=== PATIENT | male | born 1945 | race Two or more races ===

== ENCOUNTER 2021-06-14 19:46 | Inpatient (IN) | payer OTHER, MEDICAID ==
[~2021-06-14] VITALS: Ht 165.1 cm; Wt 96.6 kg
[~2021-06-14 19:46] MED LIST: ALBU90AE INH; AMLO10TA4 MT; APIX2.5T MT; ASPI-1497 MT; ATOR20TA MT; ATOR20TA65 MT; CHOL2000; COR3 MT; DEXA4TAB PO; FAMO-135 PO; FERR-71 MT; GLIP-191 MT; LEVO500T89 MT; LEVO50CA4 PO; MELO-106 MT; MOME13HF2 INH; SITA100T11 MT
[2021-06-14] MEDS ORDERED: ACETAMINOPHEN 325MG TABLET PO STA (20:26)
[2021-06-14] MEDS ORDERED: DEXAMETHASONE 4MG/ML 1ML VIAL IV ONE (20:30)
[2021-06-14] MEDS ORDERED: SODIUM CHLORIDE 0.9% 250 ML IV ONE (20:30)
[2021-06-14] MEDS ORDERED: PIPERACILLIN/TAZ 3.375G PREMIX 50 ML IV ONE (21:00)
[2021-06-14 21:51] LABS: BASOPHILS % 0.1 % (0.0-2.0); HEMATOCRIT. 42.8 % (42.0-52.0); HEMOGLOBIN. 14.7 g/dL (14.0-18.0); MEAN CORPUSCULAR HEMOGLOBIN 30.5 pg (28.0-32.0); MEAN CORPUSCULAR VOLUME 88.8 fL (80.0-94.0); MEAN PLATELET VOLUME 9.4 fl (7.4-10.4); MONOCYTES % 5.7 % (2.0-8.0); NEUTROPHILS % 83.2 % (40.0-76.0); PLATELET 160 x1000/uL (130-400); RED BLOOD CELL COUNT 4.82 mill/uL (4.7-6.1); RED CELL DISTRIBUTION WIDTH 13.5 % (11.6-14.6)
[2021-06-14 21:54] LABS: CHLORIDE 97 mEq/L (98-107)
[2021-06-14 21:57] LABS: PROTHROMBIN TIME 10.9 sec (9.6-11.0)
[2021-06-14 22:59] LABS: CLARITY URINE CLEAR (CLEAR); COLOR URINE YELLOW (YELLOW); KETONES URINE TRACE (NEGATIVE); LEUKOCYTE ESTERASE URINE NEGATIVE (NEGATIVE); NITRITE URINE NEGATIVE (NEGATIVE); OCCULT BLOOD URINE TRACE (NEGATIVE); PH URINE 5.5 (4.5-8.0); PROTEIN URINE 1+ (NEGATIVE); SPECIFIC GRAVITY URINE 1.023 (1.005-1.030); UROBILINOGEN URINE 0.2 E.U./dL (0.2-1.0)
[2021-06-15 04:00] VITALS: BP 128/61
[2021-06-15] MEDS ORDERED: *PATIENT'S OWN MEDICATION STORAGE XX SCH (04:30)
[2021-06-15 04:42] VITALS: BP 114/61
[2021-06-15] MEDS ORDERED: DEXTROSE 50% WATER 50ML SYRINGE IV PRN (07:00)
[2021-06-15] MEDS ORDERED: MORPHINE SULFATE 2 MG/ML CPJ (NOT FOR IM USE) IV PRN (07:00)
[2021-06-15] MEDS ORDERED: NALOXONE HCL 0.4MG/ML VIAL IV PRN (07:30)
[2021-06-15] MEDS: BLOOD SUGAR DIAGNOSTIC STRIP TEST SCH ×4 (07:59→20:33)
[2021-06-15 08:00] VITALS: BP 92/50
[2021-06-15] MEDS: ENOXAPARIN 40MG/0.4ML SYR SUBCUT SCH (08:32)
[2021-06-15] MEDS: AMLODIPINE 10MG TABLET PO SCH (08:32)
[2021-06-15] MEDS: ASPIRIN 81MG TABLET PO SCH (08:32)
[2021-06-15] MEDS: LEVOTHYROXINE SODIUM 50MCG TABLET PO SCH (08:33)
[2021-06-15] MEDS: SODIUM CHLORIDE 0.9% 1,000 ML IV SCH ×2 (08:33→20:20)
[2021-06-15] MEDS: CARVEDILOL 3.125 MG TABLET PO SCH ×2 (08:33→20:38)
[2021-06-15] MEDS: CEFTRIAXONE 1,000 MG in DEXTROSE 5% WATER 50 ML IV SCH (08:34)
[2021-06-15] MEDS: INSULIN LISPRO 100 UNITS/ML SUBCUT SCH ×4 (08:42→20:48)
[2021-06-15] MEDS: CHOLECALCIFEROL (D3) 1000 UNIT TABLET PO SCH (09:00)
[2021-06-15 10:29] LABS: HEMATOCRIT. 37.4 % (42.0-52.0); HEMOGLOBIN. 12.8 g/dL (14.0-18.0); MEAN CORPUSCULAR HEMOGLOBIN 30.4 pg (28.0-32.0); MEAN PLATELET VOLUME 9.4 fl (7.4-10.4); PLATELET 150 x1000/uL (130-400); RED CELL DISTRIBUTION WIDTH 13.1 % (11.6-14.6)
[2021-06-15 10:34] LABS: CHLORIDE 102 mEq/L (98-107)
[2021-06-15 12:00] VITALS: BP 98/39
[2021-06-15 12:22] LABS: PLATELET ESTIMATE NORMAL
[2021-06-15 15:04] LABS: BG BASE EXCESS -2.6 mmol/L (-2.0-2.0); BG CARBOXYHEMOGLOBIN 0.3 % (0.5-1.5); BG DEOXYHEMOGLOBIN 7.9 % (0.0-5.0); BG HCO3 ACT 20.9 mmol/L (22.0-26.0); BG OXYGEN SATURATION 92.1 % (92.0-98.5); BG OXYHEMOGLOBIN 91.8 % (94.0-97.0); BG PCO2 32.8 mmHg (35.0-45.0); BG PH 7.423 (7.350-7.450); BG SAMPLE SITE RIGHT RADIAL; BG TOTAL HEMOGLOBIN 13.6 g/dL (12.0-18.0); BG VENT MODE NASAL CANNULA
[2021-06-15 16:00] VITALS: BP 135/53
[2021-06-15] MEDS: AZITHROMYCIN 500 MG in DEXT 5% WATER 250 ML IV SCH (17:00)
[2021-06-15] MEDS: DEXAMETHASONE 10 MG/ML VIAL IV SCH (17:01)
[2021-06-15 20:00] VITALS: BP 126/54
[2021-06-15] MEDS: ACETAMINOPHEN 325MG TABLET PO PRN (20:47)
[2021-06-15] MEDS: ATORVASTATIN CALCIUM 20MG TABLET PO SCH (20:47)
[2021-06-15] MEDS: FAMOTIDINE 20MG/2ML VIAL IV SCH (20:48)
[2021-06-16] VITALS (7 sets, daily range): BP systolic 85–138; BP diastolic 52–66
[2021-06-16] MEDS: INSULIN LISPRO 100 UNITS/ML SUBCUT SCH ×4 (06:29→21:44)
[2021-06-16] MEDS: BLOOD SUGAR DIAGNOSTIC STRIP TEST SCH ×4 (06:29→21:24)
[2021-06-16 06:58] LABS: CHLORIDE 103 mEq/L (98-107)
[2021-06-16 07:07] LABS: HEMATOCRIT. 39.3 % (42.0-52.0); HEMOGLOBIN. 13.4 g/dL (14.0-18.0); MEAN CORPUSCULAR HEMOGLOBIN 30.1 pg (28.0-32.0); MEAN CORPUSCULAR VOLUME 88.5 fL (80.0-94.0); MEAN PLATELET VOLUME 9.7 fl (7.4-10.4); PLATELET 163 x1000/uL (130-400); RED BLOOD CELL COUNT 4.44 mill/uL (4.7-6.1); RED CELL DISTRIBUTION WIDTH 13.3 % (11.6-14.6)
[2021-06-16] MEDS: FAMOTIDINE 20MG/2ML VIAL IV SCH (09:00)
[2021-06-16 09:34] LABS: BG BASE EXCESS -0.7 mmol/L (-2.0-2.0); BG CARBOXYHEMOGLOBIN 0.5 % (0.5-1.5); BG DEOXYHEMOGLOBIN 5.1 % (0.0-5.0); BG FRACTION INSPIRED OXYGEN 99.8; BG METHEMOGLOBIN 0.1 % (0.0-1.5); BG OXYGEN SATURATION 94.9 % (92.0-98.5); BG OXYHEMOGLOBIN 94.3 % (94.0-97.0); BG PCO2 34.9 mmHg (35.0-45.0); BG PH 7.436 (7.350-7.450); BG PO2 69.3 mmHg (75.0-100.0); BG SAMPLE SITE RIGHT RADIAL; BG TOTAL HEMOGLOBIN 13.7 g/dL (12.0-18.0); BG VENT MODE MASK - NRB
[2021-06-16] MEDS: CEFTRIAXONE 1,000 MG in DEXTROSE 5% WATER 50 ML IV SCH (09:38)
[2021-06-16] MEDS: ENOXAPARIN 40MG/0.4ML SYR SUBCUT SCH (09:39)
[2021-06-16] MEDS: DEXAMETHASONE 10 MG/ML VIAL IV SCH (09:40)
[2021-06-16] MEDS: CHOLECALCIFEROL (D3) 1000 UNIT TABLET PO SCH (09:40)
[2021-06-16] MEDS: ASPIRIN 81MG TABLET PO SCH (09:41)
[2021-06-16] MEDS: LEVOTHYROXINE SODIUM 50MCG TABLET PO SCH (09:45)
[2021-06-16] MEDS: CARVEDILOL 3.125 MG TABLET PO SCH ×2 (09:45→21:00)
[2021-06-16] MEDS: AMLODIPINE 10MG TABLET PO SCH (09:45)
[2021-06-16] MEDS: SODIUM CHLORIDE 0.9% 1,000 ML IV SCH ×2 (09:46→21:44)
[2021-06-16 15:13] LABS: PLATELET ESTIMATE NORMAL
[2021-06-16] MEDS: AZITHROMYCIN 500 MG in DEXT 5% WATER 250 ML IV SCH (16:24)
[2021-06-16] MEDS: ATORVASTATIN CALCIUM 20MG TABLET PO SCH (21:24)
[2021-06-16] MEDS: FAMOTIDINE 20MG TABLET PO SCH (21:24)
[2021-06-17] VITALS: BP 100/49
[2021-06-17 04:00] VITALS: BP 127/59
[2021-06-17] MEDS: BLOOD SUGAR DIAGNOSTIC STRIP TEST SCH ×4 (06:30→21:33)
[2021-06-17] MEDS: LEVOTHYROXINE SODIUM 50MCG TABLET PO SCH (06:30)
[2021-06-17 06:38] LABS: CHLORIDE 103 mEq/L (98-107)
[2021-06-17 06:53] LABS: HEMATOCRIT. 38.6 % (42.0-52.0); HEMOGLOBIN. 13.2 g/dL (14.0-18.0); MEAN CORPUSCULAR HEMOGLOBIN 30.1 pg (28.0-32.0); MEAN CORPUSCULAR VOLUME 88.3 fL (80.0-94.0); MEAN PLATELET VOLUME 9.6 fl (7.4-10.4); PLATELET 192 x1000/uL (130-400); RED BLOOD CELL COUNT 4.37 mill/uL (4.7-6.1); RED CELL DISTRIBUTION WIDTH 13.4 % (11.6-14.6)
[2021-06-17 08:00] VITALS: BP 121/48
[2021-06-17] MEDS: CEFTRIAXONE 1,000 MG in DEXTROSE 5% WATER 50 ML IV SCH (08:11)
[2021-06-17] MEDS: ASPIRIN 81MG TABLET PO SCH (08:12)
[2021-06-17] MEDS: CARVEDILOL 3.125 MG TABLET PO SCH ×2 (08:12→21:32)
[2021-06-17] MEDS: ENOXAPARIN 40MG/0.4ML SYR SUBCUT SCH (08:12)
[2021-06-17] MEDS: CHOLECALCIFEROL (D3) 1000 UNIT TABLET PO SCH (08:12)
[2021-06-17] MEDS: AMLODIPINE 10MG TABLET PO SCH (08:12)
[2021-06-17] MEDS: DEXAMETHASONE 10 MG/ML VIAL IV SCH (08:12)
[2021-06-17] MEDS: FAMOTIDINE 20MG TABLET PO SCH ×2 (08:12→21:32)
[2021-06-17] MEDS: INSULIN LISPRO 100 UNITS/ML SUBCUT SCH ×4 (08:14→21:32)
[2021-06-17 10:42] LABS: BG BASE EXCESS -1.3 mmol/L (-2.0-2.0); BG CARBOXYHEMOGLOBIN 0.3 % (0.5-1.5); BG DEOXYHEMOGLOBIN 8.4 % (0.0-5.0); BG FRACTION INSPIRED OXYGEN 100; BG HCO3 ACT 21.7 mmol/L (22.0-26.0); BG METHEMOGLOBIN 0.1 % (0.0-1.5); BG OXYGEN SATURATION 91.6 % (92.0-98.5); BG OXYHEMOGLOBIN 91.2 % (94.0-97.0); BG PCO2 31.6 mmHg (35.0-45.0); BG PH 7.455 (7.350-7.450); BG PO2 56.4 mmHg (75.0-100.0); BG SAMPLE SITE RIGHT RADIAL; BG TOTAL HEMOGLOBIN 13.5 g/dL (12.0-18.0); BG VENT MODE HIGH FLOW
[2021-06-17] MEDS: SODIUM CHLORIDE 0.9% 1,000 ML IV SCH (11:24)
[2021-06-17 12:00] VITALS: BP 100/46
[2021-06-17 16:00] VITALS: BP 115/46
[2021-06-17] MEDS: AZITHROMYCIN 500 MG in DEXT 5% WATER 250 ML IV SCH (17:38)
[2021-06-17] MEDS ORDERED: INSULIN GLARGINE UD 100 UNITS/ML SYR SUBCUT NR (18:30)
[2021-06-17 20:00] VITALS: BP 123/46
[2021-06-17 21:22] LABS: PLATELET ESTIMATE NORMAL
[2021-06-17] MEDS: ATORVASTATIN CALCIUM 20MG TABLET PO SCH (21:32)
[2021-06-18] VITALS (28 sets, daily range): BP systolic 115–156; BP diastolic 50–84
[2021-06-18] MEDS: ACETAMINOPHEN 325MG TABLET PO PRN (00:50)
[2021-06-18] MEDS: SODIUM CHLORIDE 0.9% 1,000 ML IV SCH ×2 (01:40→15:11)
[2021-06-18 06:05] LABS: BG BASE EXCESS 1.5 mmol/L (-2.0-2.0); BG CARBOXYHEMOGLOBIN 0.3 % (0.5-1.5); BG DEOXYHEMOGLOBIN 11.4 % (0.0-5.0); BG FRACTION INSPIRED OXYGEN 100; BG METHEMOGLOBIN 0.2 % (0.0-1.5); BG OXYGEN SATURATION 88.5 % (92.0-98.5); BG OXYHEMOGLOBIN 88.1 % (94.0-97.0); BG PCO2 35.8 mmHg (35.0-45.0); BG PH 7.462 (7.350-7.450); BG PO2 51.4 mmHg (75.0-100.0); BG SAMPLE SITE RIGHT RADIAL; BG TOTAL HEMOGLOBIN 13.6 g/dL (12.0-18.0); BG VENT MODE MASK - NRB
[2021-06-18 06:52] LABS: CHLORIDE 99 mEq/L (98-107)
[2021-06-18 06:57] LABS: HEMATOCRIT. 37.9 % (42.0-52.0); HEMOGLOBIN. 12.9 g/dL (14.0-18.0); MEAN PLATELET VOLUME 9.1 fl (7.4-10.4); PLATELET 201 x1000/uL (130-400); RED BLOOD CELL COUNT 4.31 mill/uL (4.7-6.1); RED CELL DISTRIBUTION WIDTH 13.3 % (11.6-14.6)
[2021-06-18] MEDS: LEVOTHYROXINE SODIUM 50MCG TABLET PO SCH ×2 (07:40→10:02)
[2021-06-18] MEDS: BLOOD SUGAR DIAGNOSTIC STRIP TEST SCH ×4 (07:40→20:28)
[2021-06-18] MEDS: INSULIN LISPRO 100 UNITS/ML SUBCUT SCH ×4 (08:10→21:00)
[2021-06-18] MEDS: ASPIRIN 81MG TABLET PO SCH ×2 (09:00→10:02)
[2021-06-18] MEDS: AMLODIPINE 10MG TABLET PO SCH ×2 (09:00→10:03)
[2021-06-18] MEDS: CARVEDILOL 3.125 MG TABLET PO SCH ×3 (09:00→21:00)
[2021-06-18] MEDS: FAMOTIDINE 20MG TABLET PO SCH ×2 (09:00→21:00)
[2021-06-18] MEDS: CHOLECALCIFEROL (D3) 1000 UNIT TABLET PO SCH ×2 (09:00→10:03)
[2021-06-18] MEDS: INSULIN GLARGINE UD 100 UNITS/ML SYR SUBCUT SCH ×3 (10:00→22:00)
[2021-06-18] MEDS: ENOXAPARIN 40MG/0.4ML SYR SUBCUT SCH (10:01)
[2021-06-18] MEDS: DEXAMETHASONE 10 MG/ML VIAL IV SCH (10:01)
[2021-06-18] MEDS: CEFTRIAXONE 1,000 MG in DEXTROSE 5% WATER 50 ML IV SCH (10:02)
[2021-06-18] MEDS ORDERED: LORAZEPAM 2MG/ML CPJ IV NR ×2 (15:45→17:30)
[2021-06-18 16:11] LABS: BG BASE EXCESS 3.8 mmol/L (-2.0-2.0); BG CARBOXYHEMOGLOBIN 0.4 % (0.5-1.5); BG DEOXYHEMOGLOBIN 1.2 % (0.0-5.0); BG HCO3 ACT 27.1 mmol/L (22.0-26.0); BG METHEMOGLOBIN 0.4 % (0.0-1.5); BG OXYGEN SATURATION 98.8 % (92.0-98.5); BG PCO2 36.5 mmHg (35.0-45.0); BG PH 7.489 (7.350-7.450); BG SAMPLE SITE RIGHT RADIAL; BG TOTAL HEMOGLOBIN 13.7 g/dL (12.0-18.0); BG TOTAL RESPIRATORY RATE 44 b/min; BG VENT MODE MASK - BIPAP
[2021-06-18] MEDS: AZITHROMYCIN 500 MG in DEXT 5% WATER 250 ML IV SCH (19:36)
[2021-06-18] MEDS: ATORVASTATIN CALCIUM 20MG TABLET PO SCH (21:00)
[2021-06-19] VITALS (97 sets, daily range): BP systolic 81–162; BP diastolic 49–85
[2021-06-19 01:36] LABS: BG BASE EXCESS -3.2 mmol/L (-2.0-2.0); BG CARBOXYHEMOGLOBIN 0.3 % (0.5-1.5); BG DEOXYHEMOGLOBIN 8.1 % (0.0-5.0); BG HCO3 ACT 26.6 mmol/L (22.0-26.0); BG METHEMOGLOBIN 0.3 % (0.0-1.5); BG OXYGEN SATURATION 91.9 % (92.0-98.5); BG OXYHEMOGLOBIN 91.3 % (94.0-97.0); BG PCO2 70.5 mmHg (35.0-45.0); BG PH 7.195 (7.350-7.450); BG TOTAL HEMOGLOBIN 14.5 g/dL (12.0-18.0)
[2021-06-19] MEDS: PROPOFOL 10MG/ML 100ML 100 ML IV PRN ×6 (02:15→22:04)
[2021-06-19] MEDS: BLOOD SUGAR DIAGNOSTIC STRIP TEST SCH ×4 (05:41→21:46)
[2021-06-19] MEDS: SODIUM CHLORIDE 0.9% 1,000 ML IV SCH (05:41)
[2021-06-19] MEDS: LEVOTHYROXINE SODIUM 50MCG TABLET PO SCH (05:41)
[2021-06-19 05:47] LABS: CHLORIDE 99 mEq/L (98-107)
[2021-06-19 05:49] LABS: HEMATOCRIT. 38.2 % (42.0-52.0); HEMOGLOBIN. 12.7 g/dL (14.0-18.0); MEAN CORPUSCULAR HEMOGLOBIN 29.9 pg (28.0-32.0); MEAN CORPUSCULAR VOLUME 90.1 fL (80.0-94.0); MEAN PLATELET VOLUME 9.4 fl (7.4-10.4); PLATELET 109 x1000/uL (130-400); RED BLOOD CELL COUNT 4.24 mill/uL (4.7-6.1); RED CELL DISTRIBUTION WIDTH 13.4 % (11.6-14.6)
[2021-06-19] MEDS: INSULIN LISPRO 100 UNITS/ML SUBCUT SCH ×4 (07:00→22:00)
[2021-06-19] MEDS: NOREPINEPHRINE 8 MG in DEXT 5% WATER 242 ML IV PRN ×2 (07:32→19:49)
[2021-06-19] MEDS: CHOLECALCIFEROL (D3) 1000 UNIT TABLET PO SCH (08:59)
[2021-06-19] MEDS: ENOXAPARIN 40MG/0.4ML SYR SUBCUT SCH (08:59)
[2021-06-19] MEDS: DEXAMETHASONE 10 MG/ML VIAL IV SCH (08:59)
[2021-06-19] MEDS: CARVEDILOL 3.125 MG TABLET PO SCH ×2 (09:00→21:26)
[2021-06-19] MEDS: ASPIRIN 81MG TABLET PO SCH (09:00)
[2021-06-19] MEDS: FAMOTIDINE 20MG TABLET PO SCH ×2 (09:00→21:25)
[2021-06-19] MEDS: AMLODIPINE 10MG TABLET PO SCH (09:00)
[2021-06-19] MEDS: INSULIN GLARGINE UD 100 UNITS/ML SYR SUBCUT SCH ×2 (09:01→22:03)
[2021-06-19 09:35] LABS: BG BASE EXCESS -3.4 mmol/L (-2.0-2.0); BG CARBOXYHEMOGLOBIN 1.1 % (0.5-1.5); BG DEOXYHEMOGLOBIN 22.7 % (0.0-5.0); BG FRACTION INSPIRED OXYGEN 100; BG METHEMOGLOBIN 0.3 % (0.0-1.5); BG OXYHEMOGLOBIN 75.9 % (94.0-97.0); BG PCO2 41.2 mmHg (35.0-45.0); BG PH 7.346 (7.350-7.450); BG PO2 42.3 mmHg (75.0-100.0); BG SAMPLE SITE RIGHT RADIAL; BG TOTAL HEMOGLOBIN 15.2 g/dL (12.0-18.0); BG VENT MODE VENT - AC
[2021-06-19] MEDS: CEFTRIAXONE 1,000 MG in DEXTROSE 5% WATER 50 ML IV SCH (10:25)
[2021-06-19 12:29] LABS: BG BASE EXCESS -2.9 mmol/L (-2.0-2.0); BG CARBOXYHEMOGLOBIN 0.3 % (0.5-1.5); BG DEOXYHEMOGLOBIN 3.3 % (0.0-5.0); BG FRACTION INSPIRED OXYGEN 100; BG HCO3 ACT 22.9 mmol/L (22.0-26.0); BG METHEMOGLOBIN 0.2 % (0.0-1.5); BG OXYGEN SATURATION 96.7 % (92.0-98.5); BG OXYHEMOGLOBIN 96.2 % (94.0-97.0); BG PCO2 43.4 mmHg (35.0-45.0); BG SAMPLE SITE RIGHT RADIAL; BG VENT MODE VENT - AC
[2021-06-19] MEDS ORDERED: LIDOCAINE HCL 1% 20ML VIAL (Pyxis) INJ ONE (13:28)
[2021-06-19] MEDS: AZITHROMYCIN 500 MG in DEXT 5% WATER 250 ML IV SCH (16:09)
[2021-06-19 17:22] LABS: PLATELET ESTIMATE NORMAL
[2021-06-19 17:36] LABS: PLATELET ESTIMATE DECREASED
[2021-06-19] MEDS: ATORVASTATIN CALCIUM 20MG TABLET PO SCH (21:25)
[2021-06-20] VITALS (99 sets, daily range): BP systolic 62–163; BP diastolic 33–82
[2021-06-20] MEDS: PROPOFOL 10MG/ML 100ML 100 ML IV PRN ×3 (02:07→10:07)
[2021-06-20] MEDS: IPRATROPIUM/ALBUTEROL 0.5-3(2.5)MG/3ML NEB HHN SCH ×4 (02:10→20:15)
[2021-06-20] MEDS: BLOOD SUGAR DIAGNOSTIC STRIP TEST SCH ×4 (06:08→20:05)
[2021-06-20] MEDS: INSULIN LISPRO 100 UNITS/ML SUBCUT SCH ×4 (06:24→20:21)
[2021-06-20] MEDS: LEVOTHYROXINE SODIUM 50MCG TABLET PO SCH (06:24)
[2021-06-20 06:26] LABS: CHLORIDE 101 mEq/L (98-107)
[2021-06-20] MEDS: ENOXAPARIN 40MG/0.4ML SYR SUBCUT SCH (08:29)
[2021-06-20] MEDS: DEXAMETHASONE 4MG/ML 1ML VIAL IV SCH (08:29)
[2021-06-20] MEDS: CEFTRIAXONE 1,000 MG in DEXTROSE 5% WATER 50 ML IV SCH (08:29)
[2021-06-20] MEDS: ASPIRIN 81MG TABLET PO SCH (08:30)
[2021-06-20] MEDS: CHOLECALCIFEROL (D3) 1000 UNIT TABLET PO SCH (08:30)
[2021-06-20] MEDS: FAMOTIDINE 20MG TABLET PO SCH ×2 (08:30→20:22)
[2021-06-20] MEDS: CARVEDILOL 3.125 MG TABLET PO SCH ×2 (08:31→20:04)
[2021-06-20] MEDS: AMLODIPINE 10MG TABLET PO SCH (08:31)
[2021-06-20 09:02] LABS: BG BASE EXCESS -2.1 mmol/L (-2.0-2.0); BG CARBOXYHEMOGLOBIN 0.3 % (0.5-1.5); BG DEOXYHEMOGLOBIN 8.7 % (0.0-5.0); BG FRACTION INSPIRED OXYGEN 100; BG HCO3 ACT 22.9 mmol/L (22.0-26.0); BG METHEMOGLOBIN 0.3 % (0.0-1.5); BG OXYGEN SATURATION 91.2 % (92.0-98.5); BG OXYHEMOGLOBIN 90.7 % (94.0-97.0); BG PCO2 40.2 mmHg (35.0-45.0); BG PH 7.374 (7.350-7.450); BG PO2 60.2 mmHg (75.0-100.0); BG SAMPLE SITE RIGHT RADIAL; BG TOTAL HEMOGLOBIN 13.6 g/dL (12.0-18.0); BG VENT MODE VENT - AC
[2021-06-20] MEDS: NOREPINEPHRINE 8 MG in DEXT 5% WATER 242 ML IV PRN ×2 (10:06→14:55)
[2021-06-20] MEDS: INSULIN GLARGINE UD 100 UNITS/ML SYR SUBCUT SCH ×2 (10:58→21:01)
[2021-06-20] MEDS ORDERED: MIDAZOLAM 100MG/100ML PMX 100 ML IV PRN (11:45)
[2021-06-20] MEDS ORDERED: MIDAZOLAM HCL 100 MG in SODIUM CHLORIDE 0.9% 100 ML IV PRN (12:00)
[2021-06-20] MEDS: FENTANYL CITRATE/PF 2,500 MCG in SODIUM CHLORIDE 0.9% 200 ML IV PRN (13:09)
[2021-06-20] MEDS: ACETAMINOPHEN 325MG TABLET PO PRN (15:56)
[2021-06-20] MEDS: NOREPINEPHRINE 32 MG in DEXT 5% WATER 242 ML IV PRN (19:01)
[2021-06-20] MEDS: ATORVASTATIN CALCIUM 20MG TABLET PO SCH (20:22)
[2021-06-20 20:58] LABS: BG BASE EXCESS -3.6 mmol/L (-2.0-2.0); BG CARBOXYHEMOGLOBIN 0.5 % (0.5-1.5); BG DEOXYHEMOGLOBIN 5.8 % (0.0-5.0); BG FRACTION INSPIRED OXYGEN 100; BG HCO3 ACT 23.1 mmol/L (22.0-26.0); BG METHEMOGLOBIN 0.3 % (0.0-1.5); BG OXYGEN SATURATION 94.2 % (92.0-98.5); BG OXYHEMOGLOBIN 93.4 % (94.0-97.0); BG PCO2 48.9 mmHg (35.0-45.0); BG PH 7.293 (7.350-7.450); BG SAMPLE SITE RIGHT RADIAL; BG TOTAL HEMOGLOBIN 12.7 g/dL (12.0-18.0); BG VENT MODE PRVC
[2021-06-21] VITALS (96 sets, daily range): BP systolic 84–148; BP diastolic 36–66
[2021-06-21] MEDS: IPRATROPIUM/ALBUTEROL 0.5-3(2.5)MG/3ML NEB HHN SCH ×4 (01:51→20:24)
[2021-06-21] MEDS: BLOOD SUGAR DIAGNOSTIC STRIP TEST SCH ×4 (05:48→20:19)
[2021-06-21] MEDS: INSULIN LISPRO 100 UNITS/ML SUBCUT SCH ×4 (05:52→20:26)
[2021-06-21] MEDS: LEVOTHYROXINE SODIUM 50MCG TABLET PO SCH (05:52)
[2021-06-21] MEDS: AMLODIPINE 10MG TABLET PO SCH (09:00)
[2021-06-21] MEDS: CARVEDILOL 3.125 MG TABLET PO SCH ×2 (09:00→20:19)
[2021-06-21 09:39] LABS: HEMATOCRIT. 30.8 % (42.0-52.0); HEMOGLOBIN. 10.4 g/dL (14.0-18.0); MEAN CORPUSCULAR HEMOGLOBIN 30.5 pg (28.0-32.0); MEAN CORPUSCULAR VOLUME 90.7 fL (80.0-94.0); MEAN PLATELET VOLUME 9.9 fl (7.4-10.4); RED CELL DISTRIBUTION WIDTH 13.7 % (11.6-14.6)
[2021-06-21] MEDS: ASPIRIN 81MG TABLET PO SCH (09:54)
[2021-06-21] MEDS: DEXAMETHASONE 4MG/ML 1ML VIAL IV SCH (09:54)
[2021-06-21] MEDS: FAMOTIDINE 20MG TABLET PO SCH (09:55)
[2021-06-21] MEDS: INSULIN GLARGINE UD 100 UNITS/ML SYR SUBCUT SCH ×2 (09:55→21:14)
[2021-06-21] MEDS: CHOLECALCIFEROL (D3) 1000 UNIT TABLET PO SCH (09:55)
[2021-06-21 10:17] LABS: PLATELET 19 x1000/uL (130-400)
[2021-06-21] MEDS: METOCLOPRAMIDE HCL 10MG/2ML VIAL IV SCH ×3 (12:19→23:00)
[2021-06-21 12:46] LABS: NUCLEATED RED BLOOD CELLS 1 /100 WBC; PLATELET ESTIMATE MARKEDLY DECREASED
[2021-06-21] MEDS ORDERED: VANCOMYCIN 2,000 MG in DEXT 5% WATER 500 ML IV SCH (14:00)
[2021-06-21 14:23] LABS: BG BASE EXCESS 1.1 mmol/L (-2.0-2.0); BG CARBOXYHEMOGLOBIN 0.5 % (0.5-1.5); BG DEOXYHEMOGLOBIN 0.8 % (0.0-5.0); BG HCO3 ACT 26.3 mmol/L (22.0-26.0); BG METHEMOGLOBIN 0.3 % (0.0-1.5); BG OXYGEN SATURATION 99.2 % (92.0-98.5); BG OXYHEMOGLOBIN 98.4 % (94.0-97.0); BG PCO2 43.8 mmHg (35.0-45.0); BG PH 7.396 (7.350-7.450); BG PO2 222.9 mmHg (75.0-100.0); BG SAMPLE SITE RIGHT BRACHIAL; BG TOTAL HEMOGLOBIN 12.9 g/dL (12.0-18.0); BG VENT MODE VENT- PRVC
[2021-06-21] MEDS: MEROPENEM 1,000 MG in SODIUM CHLORIDE 0.9% 100 ML IV SCH ×2 (14:23→23:00)
[2021-06-21] MEDS: ATORVASTATIN CALCIUM 20MG TABLET PO SCH (20:25)
[2021-06-21] MEDS: NOREPINEPHRINE 32 MG in DEXT 5% WATER 242 ML IV PRN (20:25)
[2021-06-22] VITALS (92 sets, daily range): BP systolic 87–146; BP diastolic 39–65
[2021-06-22] MEDS: IPRATROPIUM/ALBUTEROL 0.5-3(2.5)MG/3ML NEB HHN SCH ×4 (02:11→20:34)
[2021-06-22] MEDS: BLOOD SUGAR DIAGNOSTIC STRIP TEST SCH ×4 (05:04→23:02)
[2021-06-22] MEDS: METOCLOPRAMIDE HCL 10MG/2ML VIAL IV SCH ×4 (05:18→23:02)
[2021-06-22] MEDS: LEVOTHYROXINE SODIUM 50MCG TABLET PO SCH (05:19)
[2021-06-22] MEDS: INSULIN LISPRO 100 UNITS/ML SUBCUT SCH ×4 (05:19→23:03)
[2021-06-22 05:46] LABS: HEMATOCRIT. 27.6 % (42.0-52.0); HEMOGLOBIN. 9.3 g/dL (14.0-18.0); MEAN CORPUSCULAR HEMOGLOBIN 29.9 pg (28.0-32.0); MEAN CORPUSCULAR VOLUME 89.1 fL (80.0-94.0); MEAN PLATELET VOLUME 8.8 fl (7.4-10.4); RED CELL DISTRIBUTION WIDTH 13.7 % (11.6-14.6)
[2021-06-22 06:16] LABS: PLATELET 33 x1000/uL (130-400)
[2021-06-22] MEDS: AMLODIPINE 10MG TABLET PO SCH (09:00)
[2021-06-22] MEDS ORDERED: ENOXAPARIN 30MG/0.3ML SYR SUBCUT SCH (09:00)
[2021-06-22] MEDS: CARVEDILOL 3.125 MG TABLET PO SCH ×2 (09:00→21:00)
[2021-06-22] MEDS: DEXAMETHASONE 4MG/ML 1ML VIAL IV SCH (09:16)
[2021-06-22] MEDS: ASPIRIN 81MG TABLET PO SCH (09:17)
[2021-06-22] MEDS: MEROPENEM 1,000 MG in SODIUM CHLORIDE 0.9% 100 ML IV SCH ×2 (09:17→21:21)
[2021-06-22] MEDS: FAMOTIDINE 20MG TABLET PO SCH (09:17)
[2021-06-22] MEDS: CHOLECALCIFEROL (D3) 1000 UNIT TABLET PO SCH (09:17)
[2021-06-22 09:18] LABS: BG BASE EXCESS 5.9 mmol/L (-2.0-2.0); BG CARBOXYHEMOGLOBIN 0.3 % (0.5-1.5); BG DEOXYHEMOGLOBIN 1.9 % (0.0-5.0); BG FRACTION INSPIRED OXYGEN 90; BG HCO3 ACT 30.6 mmol/L (22.0-26.0); BG METHEMOGLOBIN 0.3 % (0.0-1.5); BG OXYGEN SATURATION 98.1 % (92.0-98.5); BG OXYHEMOGLOBIN 97.5 % (94.0-97.0); BG PCO2 45.1 mmHg (35.0-45.0); BG PO2 126.9 mmHg (75.0-100.0); BG SAMPLE SITE RIGHT RADIAL; BG TOTAL HEMOGLOBIN 11.2 g/dL (12.0-18.0); BG VENT MODE PRVC
[2021-06-22] MEDS: INSULIN GLARGINE UD 100 UNITS/ML SYR SUBCUT SCH ×2 (09:32→21:22)
[2021-06-22] MEDS: VANCOMYCIN 1 G PREMIX 200 ML IV SCH ×2 (10:28→21:25)
[2021-06-22 10:59] LABS: PLATELET ESTIMATE MARKEDLY DECREASED
[2021-06-22] MEDS: FENTANYL CITRATE/PF 2,500 MCG in SODIUM CHLORIDE 0.9% 200 ML IV PRN (19:38)
[2021-06-22] MEDS: ATORVASTATIN CALCIUM 20MG TABLET PO SCH (21:21)
[2021-06-22 22:56] LABS: INR 1.1; PROTHROMBIN TIME 12.2 sec (9.6-11.0)
[2021-06-23] VITALS (90 sets, daily range): BP systolic 77–142; BP diastolic 42–67
[2021-06-23] MEDS: IPRATROPIUM/ALBUTEROL 0.5-3(2.5)MG/3ML NEB HHN SCH ×4 (01:00→21:21)
[2021-06-23 05:07] LABS: BASOPHILS % 0.2 % (0.0-2.0); EOSINOPHILS % 0.2 % (0.0-5.0); HEMATOCRIT. 28.1 % (42.0-52.0); HEMOGLOBIN. 9.3 g/dL (14.0-18.0); LYMPHOCYTES % 2.9 % (20.0-50.0); MEAN CORPUSCULAR HEMOGLOBIN 30.6 pg (28.0-32.0); MEAN CORPUSCULAR VOLUME 92.9 fL (80.0-94.0); MEAN PLATELET VOLUME 9.1 fl (7.4-10.4); MONOCYTES % 3.6 % (2.0-8.0); NEUTROPHILS % 93.1 % (40.0-76.0); RED BLOOD CELL COUNT 3.02 mill/uL (4.7-6.1); RED CELL DISTRIBUTION WIDTH 14.1 % (11.6-14.6)
[2021-06-23] MEDS: METOCLOPRAMIDE HCL 10MG/2ML VIAL IV SCH ×4 (05:08→23:51)
[2021-06-23] MEDS: INSULIN LISPRO 100 UNITS/ML SUBCUT SCH ×4 (05:08→23:51)
[2021-06-23 05:09] LABS: CHLORIDE 105 mEq/L (98-107)
[2021-06-23] MEDS: BLOOD SUGAR DIAGNOSTIC STRIP TEST SCH ×4 (05:09→23:44)
[2021-06-23 05:28] LABS: PLATELET 19 x1000/uL (130-400)
[2021-06-23] MEDS: LEVOTHYROXINE SODIUM 50MCG TABLET PO SCH (05:30)
[2021-06-23] MEDS: FAMOTIDINE 20MG TABLET PO SCH (09:00)
[2021-06-23] MEDS: DEXAMETHASONE 4MG/ML 1ML VIAL IV SCH (09:40)
[2021-06-23] MEDS: ASPIRIN 81MG TABLET PO SCH (09:40)
[2021-06-23] MEDS: AMLODIPINE 10MG TABLET PO SCH (09:41)
[2021-06-23] MEDS: CHOLECALCIFEROL (D3) 1000 UNIT TABLET PO SCH (09:41)
[2021-06-23] MEDS: CARVEDILOL 3.125 MG TABLET PO SCH ×2 (09:41→22:02)
[2021-06-23] MEDS: VANCOMYCIN 1 G PREMIX 200 ML IV SCH (09:42)
[2021-06-23] MEDS: INSULIN GLARGINE UD 100 UNITS/ML SYR SUBCUT SCH ×2 (09:42→22:03)
[2021-06-23] MEDS: MEROPENEM 1,000 MG in SODIUM CHLORIDE 0.9% 100 ML IV SCH ×2 (09:44→22:02)
[2021-06-23 10:01] LABS: BG BASE EXCESS 5.5 mmol/L (-2.0-2.0); BG CARBOXYHEMOGLOBIN 0.9 % (0.5-1.5); BG DEOXYHEMOGLOBIN 6.7 % (0.0-5.0); BG FRACTION INSPIRED OXYGEN 80; BG HCO3 ACT 31.1 mmol/L (22.0-26.0); BG METHEMOGLOBIN 0.2 % (0.0-1.5); BG OXYGEN SATURATION 93.2 % (92.0-98.5); BG OXYHEMOGLOBIN 92.2 % (94.0-97.0); BG PCO2 49.6 mmHg (35.0-45.0); BG PH 7.415 (7.350-7.450); BG PO2 66.8 mmHg (75.0-100.0); BG SAMPLE SITE RIGHT RADIAL; BG TOTAL HEMOGLOBIN 12.4 g/dL (12.0-18.0); BG VENT MODE VENT - PRVC
[2021-06-23] MEDS: ATORVASTATIN CALCIUM 20MG TABLET PO SCH (22:02)
[2021-06-23] MEDS: ACETAMINOPHEN 325MG TABLET PO PRN (23:52)
[2021-06-24] VITALS (99 sets, daily range): BP systolic 99–140; BP diastolic 35–108
[2021-06-24] MEDS: IPRATROPIUM/ALBUTEROL 0.5-3(2.5)MG/3ML NEB HHN SCH ×4 (00:32→20:58)
[2021-06-24 05:40] LABS: HEMATOCRIT. 23.2 % (42.0-52.0); HEMOGLOBIN. 7.9 g/dL (14.0-18.0); MEAN CORPUSCULAR HEMOGLOBIN 30.3 pg (28.0-32.0); MEAN CORPUSCULAR VOLUME 88.8 fL (80.0-94.0); MEAN PLATELET VOLUME 9.1 fl (7.4-10.4); RED BLOOD CELL COUNT 2.61 mill/uL (4.7-6.1); RED CELL DISTRIBUTION WIDTH 14.5 % (11.6-14.6)
[2021-06-24] MEDS: BLOOD SUGAR DIAGNOSTIC STRIP TEST SCH ×3 (05:45→17:17)
[2021-06-24] MEDS: METOCLOPRAMIDE HCL 10MG/2ML VIAL IV SCH ×3 (05:45→17:16)
[2021-06-24] MEDS: LEVOTHYROXINE SODIUM 50MCG TABLET PO SCH (05:49)
[2021-06-24] MEDS: INSULIN LISPRO 100 UNITS/ML SUBCUT SCH ×3 (05:49→17:17)
[2021-06-24 06:33] LABS: PLATELET 19 x1000/uL (130-400)
[2021-06-24] MEDS: DEXAMETHASONE 4MG/ML 1ML VIAL IV SCH (08:31)
[2021-06-24] MEDS: MEROPENEM 1,000 MG in SODIUM CHLORIDE 0.9% 100 ML IV SCH ×2 (08:31→21:20)
[2021-06-24] MEDS: CARVEDILOL 3.125 MG TABLET PO SCH ×2 (08:32→21:21)
[2021-06-24] MEDS: FAMOTIDINE 20MG TABLET PO SCH (08:32)
[2021-06-24] MEDS: AMLODIPINE 10MG TABLET PO SCH (08:32)
[2021-06-24] MEDS: CHOLECALCIFEROL (D3) 1000 UNIT TABLET PO SCH (08:32)
[2021-06-24 08:49] LABS: BG BASE EXCESS 4.7 mmol/L (-2.0-2.0); BG CARBOXYHEMOGLOBIN 0.9 % (0.5-1.5); BG DEOXYHEMOGLOBIN 9.5 % (0.0-5.0); BG FRACTION INSPIRED OXYGEN 90; BG HCO3 ACT 29.3 mmol/L (22.0-26.0); BG METHEMOGLOBIN 0.3 % (0.0-1.5); BG OXYGEN SATURATION 90.4 % (92.0-98.5); BG OXYHEMOGLOBIN 89.3 % (94.0-97.0); BG PH 7.442 (7.350-7.450); BG PO2 60.1 mmHg (75.0-100.0); BG SAMPLE SITE RIGHT RADIAL; BG TOTAL HEMOGLOBIN 9.6 g/dL (12.0-18.0); BG VENT MODE VENT - PRVC
[2021-06-24] MEDS: INSULIN GLARGINE UD 100 UNITS/ML SYR SUBCUT SCH ×2 (09:58→21:20)
[2021-06-24 15:47] LABS: PLATELET ESTIMATE MARKEDLY DECREASED
[2021-06-24] MEDS: ACETAMINOPHEN 325MG TABLET PO PRN (16:14)
[2021-06-24] MEDS: FENTANYL CITRATE/PF 2,500 MCG in SODIUM CHLORIDE 0.9% 200 ML IV PRN (20:12)
[2021-06-24] MEDS: ATORVASTATIN CALCIUM 20MG TABLET PO SCH (21:20)
[2021-06-25] VITALS (64 sets, daily range): BP systolic 105–141; BP diastolic 37–67
[2021-06-25] MEDS: BLOOD SUGAR DIAGNOSTIC STRIP TEST SCH ×5 (00:25→23:55)
[2021-06-25] MEDS: INSULIN LISPRO 100 UNITS/ML SUBCUT SCH ×4 (00:38→17:53)
[2021-06-25] MEDS: ACETAMINOPHEN 325MG TABLET PO PRN ×2 (00:39→09:02)
[2021-06-25] MEDS: IPRATROPIUM/ALBUTEROL 0.5-3(2.5)MG/3ML NEB HHN SCH ×4 (01:13→14:55)
[2021-06-25] MEDS: LEVOTHYROXINE SODIUM 50MCG TABLET PO SCH (06:09)
[2021-06-25] MEDS: METOCLOPRAMIDE HCL 10MG/2ML VIAL IV SCH ×5 (06:09→23:43)
[2021-06-25 06:31] LABS: HEMATOCRIT. 21.7 % (42.0-52.0); HEMOGLOBIN. 7.2 g/dL (14.0-18.0); MEAN CORPUSCULAR HEMOGLOBIN 29.7 pg (28.0-32.0); RED BLOOD CELL COUNT 2.42 mill/uL (4.7-6.1); RED CELL DISTRIBUTION WIDTH 14.5 % (11.6-14.6)
[2021-06-25 06:37] LABS: PLATELET 39 x1000/uL (130-400)
[2021-06-25] MEDS ORDERED: SODIUM POLYSTYRENE SULFONATE 15 G/60 ML BOT PO SCH (08:00)
[2021-06-25] MEDS: DEXAMETHASONE 4MG/ML 1ML VIAL IV SCH (08:40)
[2021-06-25] MEDS: MEROPENEM 1,000 MG in SODIUM CHLORIDE 0.9% 100 ML IV SCH ×2 (08:40→20:09)
[2021-06-25] MEDS: CHOLECALCIFEROL (D3) 1000 UNIT TABLET PO SCH (08:41)
[2021-06-25] MEDS: CARVEDILOL 3.125 MG TABLET PO SCH ×2 (08:41→20:08)
[2021-06-25] MEDS: AMLODIPINE 10MG TABLET PO SCH (08:41)
[2021-06-25] MEDS: FAMOTIDINE 20MG TABLET PO SCH (08:41)
[2021-06-25] MEDS: INSULIN GLARGINE UD 100 UNITS/ML SYR SUBCUT SCH ×2 (09:03→21:52)
[2021-06-25 11:35] LABS: BG BASE EXCESS 5.3 mmol/L (-2.0-2.0); BG CARBOXYHEMOGLOBIN 0.1 % (0.5-1.5); BG DEOXYHEMOGLOBIN 1.6 % (0.0-5.0); BG HCO3 ACT 30.7 mmol/L (22.0-26.0); BG METHEMOGLOBIN 0.4 % (0.0-1.5); BG OXYGEN SATURATION 98.4 % (92.0-98.5); BG OXYHEMOGLOBIN 97.9 % (94.0-97.0); BG PCO2 49.7 mmHg (35.0-45.0); BG PH 7.408 (7.350-7.450); BG PO2 147.2 mmHg (75.0-100.0); BG SAMPLE SITE RIGHT RADIAL; BG TOTAL HEMOGLOBIN 8.6 g/dL (12.0-18.0); BG VENT MODE VENT- PRVC
[2021-06-25 18:24] LABS: PLATELET ESTIMATE MARKEDLY DECREASED
[2021-06-25] MEDS: ATORVASTATIN CALCIUM 20MG TABLET PO SCH (20:08)
[2021-06-26] VITALS (47 sets, daily range): BP systolic 111–136; BP diastolic 42–70
[2021-06-26] MEDS: LEVOTHYROXINE SODIUM 50MCG TABLET PO SCH (05:32)
[2021-06-26] MEDS: METOCLOPRAMIDE HCL 10MG/2ML VIAL IV SCH ×3 (05:32→18:19)
[2021-06-26 05:38] LABS: HEMATOCRIT. 23.7 % (42.0-52.0); HEMOGLOBIN. 7.7 g/dL (14.0-18.0); MEAN CORPUSCULAR HEMOGLOBIN 29.5 pg (28.0-32.0); MEAN CORPUSCULAR VOLUME 91.4 fL (80.0-94.0); RED CELL DISTRIBUTION WIDTH 14.7 % (11.6-14.6)
[2021-06-26] MEDS: BLOOD SUGAR DIAGNOSTIC STRIP TEST SCH ×3 (05:43→17:07)
[2021-06-26] MEDS: INSULIN LISPRO 100 UNITS/ML SUBCUT SCH ×4 (05:49→18:20)
[2021-06-26 06:09] LABS: PLATELET 24 x1000/uL (130-400)
[2021-06-26] MEDS: FAMOTIDINE 20MG TABLET PO SCH (08:27)
[2021-06-26] MEDS: CHOLECALCIFEROL (D3) 1000 UNIT TABLET PO SCH (08:27)
[2021-06-26] MEDS: CARVEDILOL 3.125 MG TABLET PO SCH ×2 (08:27→20:12)
[2021-06-26] MEDS: AMLODIPINE 10MG TABLET PO SCH (08:27)
[2021-06-26] MEDS: DEXAMETHASONE 4MG/ML 1ML VIAL IV SCH (08:27)
[2021-06-26] MEDS: MEROPENEM 1,000 MG in SODIUM CHLORIDE 0.9% 100 ML IV SCH ×2 (08:27→20:12)
[2021-06-26] MEDS: INSULIN GLARGINE UD 100 UNITS/ML SYR SUBCUT SCH ×2 (09:43→22:53)
[2021-06-26 09:59] LABS: BG CARBOXYHEMOGLOBIN 0.3 % (0.5-1.5); BG DEOXYHEMOGLOBIN 1.1 % (0.0-5.0); BG FRACTION INSPIRED OXYGEN 100; BG HCO3 ACT 35.3 mmol/L (22.0-26.0); BG METHEMOGLOBIN 0.2 % (0.0-1.5); BG OXYGEN SATURATION 98.9 % (92.0-98.5); BG OXYHEMOGLOBIN 98.4 % (94.0-97.0); BG PCO2 55.6 mmHg (35.0-45.0); BG PO2 176.3 mmHg (75.0-100.0); BG SAMPLE SITE RIGHT RADIAL; BG TOTAL HEMOGLOBIN 12.9 g/dL (12.0-18.0); BG VENT MODE VENT - PRVC
[2021-06-26] MEDS ORDERED: SODIUM BICARBONATE 8.4% 1 MEQ/ML 50ML SYR IV SCH (11:00)
[2021-06-26] MEDS ORDERED: DEXTROSE 50% WATER 50ML SYRINGE IV SCH (11:00)
[2021-06-26] MEDS ORDERED: INSULIN REGULAR (HUMULIN R) 300UNITS/3ML VIAL IV SCH (11:00)
[2021-06-26] MEDS ORDERED: SODIUM POLYSTYRENE SULFONATE 15 G/60 ML BOT PO SCH (11:00)
[2021-06-26] MEDS ORDERED: CALCIUM GLUCONATE 1GM PREMIX 50 ML IV SCH (12:00)
[2021-06-26] MEDS: DEXT 5%/0.2% NACL 1,000 ML IV SCH ×2 (14:18→22:55)
[2021-06-26] MEDS: IPRATROPIUM/ALBUTEROL 0.5-3(2.5)MG/3ML NEB HHN SCH ×2 (15:29→20:50)
[2021-06-26] MEDS: ACETAMINOPHEN 325MG TABLET PO PRN (16:29)
[2021-06-26] MEDS ORDERED: SODIUM POLYSTYRENE SULFONATE 15 G/60 ML BOT NG SCH (18:00)
[2021-06-26 20:01] LABS: PLATELET ESTIMATE MARKEDLY DECREASED
[2021-06-26] MEDS: ATORVASTATIN CALCIUM 20MG TABLET PO SCH (20:12)
[2021-06-27] VITALS (43 sets, daily range): BP systolic 101–148; BP diastolic 44–69
[2021-06-27] MEDS: BLOOD SUGAR DIAGNOSTIC STRIP TEST SCH ×4 (00:17→18:03)
[2021-06-27] MEDS: INSULIN LISPRO 100 UNITS/ML SUBCUT SCH ×4 (00:21→17:03)
[2021-06-27] MEDS: IPRATROPIUM/ALBUTEROL 0.5-3(2.5)MG/3ML NEB HHN SCH ×4 (00:40→21:05)
[2021-06-27] MEDS: METOCLOPRAMIDE HCL 10MG/2ML VIAL IV SCH ×4 (05:49→17:03)
[2021-06-27] MEDS: LEVOTHYROXINE SODIUM 50MCG TABLET PO SCH (05:59)
[2021-06-27] MEDS: DEXT 5%/0.2% NACL 1,000 ML IV SCH (05:59)
[2021-06-27 06:02] LABS: PHOSPHORUS 4.9 mg/dL (2.5-4.9)
[2021-06-27 08:05] LABS: BG BASE EXCESS 5.9 mmol/L (-2.0-2.0); BG CARBOXYHEMOGLOBIN 0.1 % (0.5-1.5); BG DEOXYHEMOGLOBIN 1.9 % (0.0-5.0); BG HCO3 ACT 30.9 mmol/L (22.0-26.0); BG METHEMOGLOBIN 0.3 % (0.0-1.5); BG OXYGEN SATURATION 98.1 % (92.0-98.5); BG OXYHEMOGLOBIN 97.7 % (94.0-97.0); BG PCO2 47.5 mmHg (35.0-45.0); BG PH 7.431 (7.350-7.450); BG SAMPLE SITE RIGHT RADIAL; BG TOTAL HEMOGLOBIN 8.2 g/dL (12.0-18.0); BG VENT MODE VENT- PRVC
[2021-06-27] MEDS ORDERED: SODIUM POLYSTYRENE SULFONATE 15 G/60 ML BOT NG NR (08:45)
[2021-06-27] MEDS: MEROPENEM 1,000 MG in SODIUM CHLORIDE 0.9% 100 ML IV SCH ×2 (09:19→20:03)
[2021-06-27] MEDS: DEXAMETHASONE 4MG/ML 1ML VIAL IV SCH (09:19)
[2021-06-27] MEDS: CHOLECALCIFEROL (D3) 1000 UNIT TABLET PO SCH (09:20)
[2021-06-27] MEDS: AMLODIPINE 10MG TABLET PO SCH (09:20)
[2021-06-27] MEDS: CARVEDILOL 3.125 MG TABLET PO SCH ×2 (09:20→20:03)
[2021-06-27] MEDS: FAMOTIDINE 20MG TABLET PO SCH (09:20)
[2021-06-27] MEDS: DEXTROSE 5% WATER 1,000 ML IV SCH ×3 (09:27→20:49)
[2021-06-27] MEDS: INSULIN GLARGINE UD 100 UNITS/ML SYR SUBCUT SCH ×2 (09:35→21:14)
[2021-06-27 10:29] LABS: MEAN CORPUSCULAR HEMOGLOBIN 31.8 pg (28.0-32.0); MEAN CORPUSCULAR VOLUME 97.9 fL (80.0-94.0); MEAN PLATELET VOLUME 10.8 fl (7.4-10.4); RED BLOOD CELL COUNT 2.11 mill/uL (4.7-6.1)
[2021-06-27 10:42] LABS: HEMATOCRIT. 20.7 % (42.0-52.0); HEMOGLOBIN. 6.7 g/dL (14.0-18.0)
[2021-06-27 10:43] LABS: PLATELET 20 x1000/uL (130-400)
[2021-06-27] MEDS ORDERED: LIDOCAINE HCL/PF 1% 2ML VIAL ONE (12:00)
[2021-06-27 18:15] LABS: NUCLEATED RED BLOOD CELLS 3 /100 WBC
[2021-06-27 18:16] LABS: PLATELET ESTIMATE MARKEDLY DECREASED
[2021-06-27] MEDS: ACETAMINOPHEN 325MG TABLET PO PRN (19:55)
[2021-06-27] MEDS: ATORVASTATIN CALCIUM 20MG TABLET PO SCH (20:03)
[2021-06-28] VITALS (43 sets, daily range): BP systolic 101–136; BP diastolic 36–56
[2021-06-28] MEDS: METOCLOPRAMIDE HCL 10MG/2ML VIAL IV SCH ×5 (00:05→23:44)
[2021-06-28] MEDS: INSULIN LISPRO 100 UNITS/ML SUBCUT SCH ×5 (00:08→23:45)
[2021-06-28] MEDS: BLOOD SUGAR DIAGNOSTIC STRIP TEST SCH ×5 (00:09→23:46)
[2021-06-28] MEDS: IPRATROPIUM/ALBUTEROL 0.5-3(2.5)MG/3ML NEB HHN SCH ×4 (01:32→20:55)
[2021-06-28] MEDS: DEXTROSE 5% WATER 1,000 ML IV SCH ×3 (03:29→16:19)
[2021-06-28 05:42] LABS: HEMATOCRIT. 21.1 % (42.0-52.0); MEAN CORPUSCULAR HEMOGLOBIN 29.5 pg (28.0-32.0); MEAN CORPUSCULAR VOLUME 89.3 fL (80.0-94.0); MEAN PLATELET VOLUME 9.2 fl (7.4-10.4); PLATELET 53 x1000/uL (130-400); RED BLOOD CELL COUNT 2.37 mill/uL (4.7-6.1); RED CELL DISTRIBUTION WIDTH 15.5 % (11.6-14.6)
[2021-06-28 05:54] LABS: PHOSPHORUS 4.6 mg/dL (2.5-4.9)
[2021-06-28] MEDS: LEVOTHYROXINE SODIUM 50MCG TABLET PO SCH (06:44)
[2021-06-28 09:43] LABS: BG BASE EXCESS 8.1 mmol/L (-2.0-2.0); BG CARBOXYHEMOGLOBIN 0.6 % (0.5-1.5); BG DEOXYHEMOGLOBIN 2.4 % (0.0-5.0); BG FRACTION INSPIRED OXYGEN 90; BG HCO3 ACT 33.3 mmol/L (22.0-26.0); BG METHEMOGLOBIN 0.6 % (0.0-1.5); BG OXYGEN SATURATION 97.6 % (92.0-98.5); BG OXYHEMOGLOBIN 96.4 % (94.0-97.0); BG PH 7.433 (7.350-7.450); BG PO2 109.3 mmHg (75.0-100.0); BG SAMPLE SITE LEFT RADIAL; BG TOTAL HEMOGLOBIN 8.5 g/dL (12.0-18.0); BG VENT MODE VENT - AC/PRVC
[2021-06-28] MEDS: DEXAMETHASONE 4MG/ML 1ML VIAL IV SCH (09:50)
[2021-06-28] MEDS: ACETAMINOPHEN 325MG TABLET PO PRN (09:50)
[2021-06-28] MEDS: CHOLECALCIFEROL (D3) 1000 UNIT TABLET PO SCH (09:50)
[2021-06-28] MEDS: FAMOTIDINE 20MG TABLET PO SCH (09:51)
[2021-06-28] MEDS: AMLODIPINE 10MG TABLET PO SCH (09:51)
[2021-06-28] MEDS: CARVEDILOL 3.125 MG TABLET PO SCH ×2 (09:51→20:16)
[2021-06-28] MEDS: MEROPENEM 1,000 MG in SODIUM CHLORIDE 0.9% 100 ML IV SCH ×2 (09:52→20:16)
[2021-06-28] MEDS: INSULIN GLARGINE UD 100 UNITS/ML SYR SUBCUT SCH ×2 (09:52→21:44)
[2021-06-28 12:36] LABS: NUCLEATED RED BLOOD CELLS 2 /100 WBC
[2021-06-28 12:37] LABS: PLATELET ESTIMATE DECREASED
[2021-06-28] MEDS: MORPHINE SULFATE 2 MG/ML CPJ (NOT FOR IM USE) IV PRN (16:36)
[2021-06-28 18:57] LABS: HEMOGLOBIN 7.6 g/dL (14.0-18.0)
[2021-06-28 19:07] LABS: INR 1.2
[2021-06-28] MEDS: ATORVASTATIN CALCIUM 20MG TABLET PO SCH (20:14)
[2021-06-29] VITALS (62 sets, daily range): BP systolic 86–146; BP diastolic 40–61
[2021-06-29] MEDS: IPRATROPIUM/ALBUTEROL 0.5-3(2.5)MG/3ML NEB HHN SCH ×4 (00:21→20:59)
[2021-06-29] MEDS: DEXTROSE 5% WATER 1,000 ML IV SCH ×4 (00:41→23:17)
[2021-06-29] MEDS: METOCLOPRAMIDE HCL 10MG/2ML VIAL IV SCH ×4 (05:30→23:15)
[2021-06-29] MEDS: INSULIN LISPRO 100 UNITS/ML SUBCUT SCH ×4 (05:30→23:16)
[2021-06-29] MEDS: LEVOTHYROXINE SODIUM 50MCG TABLET PO SCH (05:30)
[2021-06-29] MEDS: BLOOD SUGAR DIAGNOSTIC STRIP TEST SCH ×4 (05:31→23:16)
[2021-06-29 06:29] LABS: PHOSPHORUS 4.1 mg/dL (2.5-4.9)
[2021-06-29] MEDS: MORPHINE SULFATE 2 MG/ML CPJ (NOT FOR IM USE) IV PRN (07:24)
[2021-06-29 07:42] LABS: BG BASE EXCESS 3.3 mmol/L (-2.0-2.0); BG CARBOXYHEMOGLOBIN 0.5 % (0.5-1.5); BG DEOXYHEMOGLOBIN 17.2 % (0.0-5.0); BG HCO3 ACT 28.9 mmol/L (22.0-26.0); BG METHEMOGLOBIN 0.1 % (0.0-1.5); BG OXYGEN SATURATION 82.7 % (92.0-98.5); BG OXYHEMOGLOBIN 82.2 % (94.0-97.0); BG PCO2 48.5 mmHg (35.0-45.0); BG PH 7.393 (7.350-7.450); BG PO2 46.9 mmHg (75.0-100.0); BG SAMPLE SITE RIGHT RADIAL; BG TOTAL HEMOGLOBIN 11.4 g/dL (12.0-18.0); BG VENT MODE VENT- PRVC
[2021-06-29] MEDS ORDERED: NALOXONE HCL 0.4MG/ML VIAL IV PRN (08:30)
[2021-06-29] MEDS: AMLODIPINE 10MG TABLET PO SCH (09:00)
[2021-06-29] MEDS: CARVEDILOL 3.125 MG TABLET PO SCH ×2 (09:00→21:00)
[2021-06-29] MEDS: DEXAMETHASONE 4MG/ML 1ML VIAL IV SCH (09:52)
[2021-06-29] MEDS: CHOLECALCIFEROL (D3) 1000 UNIT TABLET PO SCH (09:53)
[2021-06-29] MEDS: FAMOTIDINE 20MG TABLET PO SCH (09:53)
[2021-06-29] MEDS: INSULIN GLARGINE UD 100 UNITS/ML SYR SUBCUT SCH ×2 (09:54→21:13)
[2021-06-29] MEDS ORDERED: FUROSEMIDE 40MG/4ML VIAL IVP NR (10:00)
[2021-06-29] MEDS ORDERED: INSULIN GLARGINE UD 100 UNITS/ML SYR SUBCUT SCH (10:30)
[2021-06-29 11:09] LABS: HEMATOCRIT. 23.5 % (42.0-52.0); HEMOGLOBIN. 7.7 g/dL (14.0-18.0); MEAN CORPUSCULAR HEMOGLOBIN 29.6 pg (28.0-32.0); MEAN CORPUSCULAR VOLUME 90.6 fL (80.0-94.0); MEAN PLATELET VOLUME 10.5 fl (7.4-10.4); RED BLOOD CELL COUNT 2.59 mill/uL (4.7-6.1); RED CELL DISTRIBUTION WIDTH 15.5 % (11.6-14.6)
[2021-06-29 11:21] LABS: PLATELET 30 x1000/uL (130-400)
[2021-06-29] MEDS: MEROPENEM 1,000 MG in SODIUM CHLORIDE 0.9% 100 ML IV SCH ×2 (11:29→21:11)
[2021-06-29] MEDS: MIDAZOLAM HCL 100 MG in SODIUM CHLORIDE 0.9% 80 ML IV PRN (11:31)
[2021-06-29] MEDS: FENTANYL CITRATE/PF 2,500 MCG in SODIUM CHLORIDE 0.9% 200 ML IV PRN (11:32)
[2021-06-29 12:03] LABS: NUCLEATED RED BLOOD CELLS 5 /100 WBC; PLATELET ESTIMATE MARKEDLY DECREASED
[2021-06-29] MEDS: ACETAMINOPHEN 325MG TABLET PO PRN (12:28)
[2021-06-29 12:44] LABS: BG BASE EXCESS 6.6 mmol/L (-2.0-2.0); BG CARBOXYHEMOGLOBIN 0.2 % (0.5-1.5); BG DEOXYHEMOGLOBIN 9.8 % (0.0-5.0); BG HCO3 ACT 31.8 mmol/L (22.0-26.0); BG METHEMOGLOBIN 0.3 % (0.0-1.5); BG OXYGEN SATURATION 90.2 % (92.0-98.5); BG OXYHEMOGLOBIN 89.7 % (94.0-97.0); BG PCO2 49.3 mmHg (35.0-45.0); BG PH 7.427 (7.350-7.450); BG PO2 60.2 mmHg (75.0-100.0); BG SAMPLE SITE RIGHT RADIAL; BG TOTAL HEMOGLOBIN 8.3 g/dL (12.0-18.0); BG VENT MODE VENT- PRVC
[2021-06-29] MEDS: NOREPINEPHRINE 32 MG in DEXT 5% WATER 242 ML IV PRN (15:10)
[2021-06-29] MEDS: ATORVASTATIN CALCIUM 20MG TABLET PO SCH (21:11)
[2021-06-30] VITALS (89 sets, daily range): BP systolic 105–179; BP diastolic 40–71
[2021-06-30] MEDS: IPRATROPIUM/ALBUTEROL 0.5-3(2.5)MG/3ML NEB HHN SCH ×4 (01:07→20:03)
[2021-06-30 05:41] LABS: MEAN CORPUSCULAR HEMOGLOBIN 29.4 pg (28.0-32.0); MEAN CORPUSCULAR VOLUME 90.2 fL (80.0-94.0); MEAN PLATELET VOLUME 9.9 fl (7.4-10.4); RED BLOOD CELL COUNT 2.32 mill/uL (4.7-6.1)
[2021-06-30] MEDS: METOCLOPRAMIDE HCL 10MG/2ML VIAL IV SCH ×3 (05:50→17:12)
[2021-06-30] MEDS: LEVOTHYROXINE SODIUM 50MCG TABLET PO SCH (05:50)
[2021-06-30] MEDS: BLOOD SUGAR DIAGNOSTIC STRIP TEST SCH ×3 (05:51→17:07)
[2021-06-30 05:53] LABS: CHLORIDE 100 mEq/L (98-107)
[2021-06-30 05:54] LABS: HEMOGLOBIN. 6.8 g/dL (14.0-18.0)
[2021-06-30 05:55] LABS: HEMATOCRIT. 20.9 % (42.0-52.0)
[2021-06-30 05:56] LABS: PLATELET 17 x1000/uL (130-400)
[2021-06-30] MEDS: INSULIN LISPRO 100 UNITS/ML SUBCUT SCH ×3 (06:00→17:16)
[2021-06-30 06:01] LABS: PHOSPHORUS 5.3 mg/dL (2.5-4.9)
[2021-06-30] MEDS: MIDAZOLAM HCL 100 MG in SODIUM CHLORIDE 0.9% 80 ML IV PRN (07:40)
[2021-06-30 07:41] LABS: BG BASE EXCESS 3.6 mmol/L (-2.0-2.0); BG CARBOXYHEMOGLOBIN 0.6 % (0.5-1.5); BG DEOXYHEMOGLOBIN 9.5 % (0.0-5.0); BG HCO3 ACT 30.4 mmol/L (22.0-26.0); BG METHEMOGLOBIN 0.1 % (0.0-1.5); BG OXYGEN SATURATION 90.4 % (92.0-98.5); BG OXYHEMOGLOBIN 89.8 % (94.0-97.0); BG PCO2 58.2 mmHg (35.0-45.0); BG PH 7.336 (7.350-7.450); BG PO2 62.8 mmHg (75.0-100.0); BG SAMPLE SITE RIGHT RADIAL; BG TOTAL HEMOGLOBIN 9.8 g/dL (12.0-18.0); BG VENT MODE VENT- PRVC
[2021-06-30] MEDS: AMLODIPINE 10MG TABLET PO SCH (08:34)
[2021-06-30] MEDS: CARVEDILOL 3.125 MG TABLET PO SCH ×2 (08:34→20:15)
[2021-06-30] MEDS: FAMOTIDINE 20MG TABLET PO SCH (08:37)
[2021-06-30] MEDS: CHOLECALCIFEROL (D3) 1000 UNIT TABLET PO SCH (08:37)
[2021-06-30] MEDS: DEXAMETHASONE 4MG/ML 1ML VIAL IV SCH (08:38)
[2021-06-30] MEDS: MEROPENEM 1,000 MG in SODIUM CHLORIDE 0.9% 100 ML IV SCH (09:36)
[2021-06-30 09:39] LABS: NUCLEATED RED BLOOD CELLS 5 /100 WBC; PLATELET ESTIMATE MARKEDLY DECREASED
[2021-06-30] MEDS: INSULIN GLARGINE UD 100 UNITS/ML SYR SUBCUT SCH ×2 (09:40→21:10)
[2021-06-30] MEDS: DEXTROSE 5% WATER 1,000 ML IV SCH (12:36)
[2021-06-30 13:34] LABS: HEMATOCRIT. 24.6 % (42.0-52.0); HEMOGLOBIN. 8.2 g/dL (14.0-18.0); MEAN CORPUSCULAR HEMOGLOBIN 30.2 pg (28.0-32.0); MEAN CORPUSCULAR VOLUME 90.2 fL (80.0-94.0); MEAN PLATELET VOLUME 8.1 fl (7.4-10.4); RED BLOOD CELL COUNT 2.73 mill/uL (4.7-6.1); RED CELL DISTRIBUTION WIDTH 14.7 % (11.6-14.6)
[2021-06-30 13:41] LABS: PLATELET 34 x1000/uL (130-400)
[2021-06-30 13:45] LABS: BG BASE EXCESS 1.5 mmol/L (-2.0-2.0); BG CARBOXYHEMOGLOBIN 0.7 % (0.5-1.5); BG DEOXYHEMOGLOBIN 9.2 % (0.0-5.0); BG HCO3 ACT 28.3 mmol/L (22.0-26.0); BG METHEMOGLOBIN 0.4 % (0.0-1.5); BG OXYGEN SATURATION 90.7 % (92.0-98.5); BG OXYHEMOGLOBIN 89.7 % (94.0-97.0); BG PCO2 56.9 mmHg (35.0-45.0); BG PH 7.314 (7.350-7.450); BG PO2 63.5 mmHg (75.0-100.0); BG SAMPLE SITE RIGHT RADIAL; BG TOTAL HEMOGLOBIN 9.2 g/dL (12.0-18.0); BG VENT MODE VENT- PRVC
[2021-06-30 17:14] LABS: BG BASE EXCESS 2.7 mmol/L (-2.0-2.0); BG CARBOXYHEMOGLOBIN 0.8 % (0.5-1.5); BG DEOXYHEMOGLOBIN 8.3 % (0.0-5.0); BG HCO3 ACT 29.7 mmol/L (22.0-26.0); BG OXYGEN SATURATION 91.6 % (92.0-98.5); BG OXYHEMOGLOBIN 90.9 % (94.0-97.0); BG PCO2 60.4 mmHg (35.0-45.0); BG SAMPLE SITE RIGHT RADIAL; BG VENT MODE VENT- PRVC
[2021-06-30 17:59] LABS: NUCLEATED RED BLOOD CELLS 4 /100 WBC
[2021-06-30 18:00] LABS: PLATELET ESTIMATE MARKEDLY DECREASED
[2021-06-30] MEDS: ATORVASTATIN CALCIUM 20MG TABLET PO SCH (20:16)
[2021-06-30] MEDS: FENTANYL CITRATE/PF 2,500 MCG in SODIUM CHLORIDE 0.9% 200 ML IV PRN (21:15)
[2021-06-30 23:06] LABS: HEMATOCRIT. 22.5 % (42.0-52.0); HEMOGLOBIN. 7.7 g/dL (14.0-18.0); MEAN CORPUSCULAR HEMOGLOBIN 30.4 pg (28.0-32.0); MEAN CORPUSCULAR VOLUME 89.4 fL (80.0-94.0); MEAN PLATELET VOLUME 8.8 fl (7.4-10.4); RED BLOOD CELL COUNT 2.52 mill/uL (4.7-6.1); RED CELL DISTRIBUTION WIDTH 14.5 % (11.6-14.6)
[2021-06-30 23:14] LABS: PLATELET 26 x1000/uL (130-400)
[2021-06-30 23:25] LABS: NUCLEATED RED BLOOD CELLS 2 /100 WBC; PLATELET ESTIMATE MARKEDLY DECREASED
[2021-07-01] VITALS (90 sets, daily range): BP systolic 102–132; BP diastolic 40–69
[2021-07-01] MEDS: BLOOD SUGAR DIAGNOSTIC STRIP TEST SCH ×4 (00:36→18:13)
[2021-07-01] MEDS: METOCLOPRAMIDE HCL 10MG/2ML VIAL IV SCH ×4 (00:36→18:48)
[2021-07-01] MEDS: INSULIN LISPRO 100 UNITS/ML SUBCUT SCH ×4 (00:46→18:47)
[2021-07-01] MEDS: IPRATROPIUM/ALBUTEROL 0.5-3(2.5)MG/3ML NEB HHN SCH ×4 (02:12→20:48)
[2021-07-01] MEDS: LEVOTHYROXINE SODIUM 50MCG TABLET PO SCH (06:05)
[2021-07-01 06:30] LABS: HEMATOCRIT. 21.7 % (42.0-52.0); HEMOGLOBIN. 7.3 g/dL (14.0-18.0); MEAN CORPUSCULAR HEMOGLOBIN 30.1 pg (28.0-32.0); MEAN CORPUSCULAR VOLUME 89.9 fL (80.0-94.0); MEAN PLATELET VOLUME 10.1 fl (7.4-10.4); RED BLOOD CELL COUNT 2.41 mill/uL (4.7-6.1); RED CELL DISTRIBUTION WIDTH 14.3 % (11.6-14.6)
[2021-07-01 06:37] LABS: PHOSPHORUS 4.6 mg/dL (2.5-4.9)
[2021-07-01 06:42] LABS: PLATELET 24 x1000/uL (130-400)
[2021-07-01] MEDS: AMLODIPINE 10MG TABLET PO SCH (08:24)
[2021-07-01] MEDS: CARVEDILOL 3.125 MG TABLET PO SCH ×2 (08:24→22:33)
[2021-07-01] MEDS: DEXAMETHASONE 4MG/ML 1ML VIAL IV SCH (09:12)
[2021-07-01] MEDS: FAMOTIDINE 20MG TABLET PO SCH (09:12)
[2021-07-01] MEDS: DEXTROSE 5% WATER 1,000 ML IV SCH (09:12)
[2021-07-01] MEDS: CHOLECALCIFEROL (D3) 1000 UNIT TABLET PO SCH (09:12)
[2021-07-01] MEDS: MIDAZOLAM HCL 100 MG in SODIUM CHLORIDE 0.9% 80 ML IV PRN (09:13)
[2021-07-01] MEDS: INSULIN GLARGINE UD 100 UNITS/ML SYR SUBCUT SCH ×2 (09:37→22:35)
[2021-07-01 09:44] LABS: BG BASE EXCESS 5.1 mmol/L (-2.0-2.0); BG DEOXYHEMOGLOBIN 10.9 % (0.0-5.0); BG FRACTION INSPIRED OXYGEN 100; BG HCO3 ACT 31.8 mmol/L (22.0-26.0); BG METHEMOGLOBIN 0.2 % (0.0-1.5); BG OXYHEMOGLOBIN 87.9 % (94.0-97.0); BG PCO2 58.7 mmHg (35.0-45.0); BG PH 7.351 (7.350-7.450); BG PO2 54.1 mmHg (75.0-100.0); BG SAMPLE SITE RIGHT RADIAL; BG VENT MODE PRVC
[2021-07-01 10:48] LABS: NUCLEATED RED BLOOD CELLS 7 /100 WBC; PLATELET ESTIMATE MARKEDLY DECREASED
[2021-07-01] MEDS: ATORVASTATIN CALCIUM 20MG TABLET PO SCH (22:33)
[2021-07-01] MEDS: FENTANYL CITRATE/PF 2,500 MCG in SODIUM CHLORIDE 0.9% 200 ML IV PRN (23:33)
[2021-07-01] MEDS: NOREPINEPHRINE 32 MG in DEXT 5% WATER 242 ML IV PRN (23:51)
[2021-07-02] VITALS (33 sets, daily range): BP systolic 57–109; BP diastolic 27–49
[2021-07-02] MEDS: METOCLOPRAMIDE HCL 10MG/2ML VIAL IV SCH ×2 (00:26→06:56)
[2021-07-02] MEDS: BLOOD SUGAR DIAGNOSTIC STRIP TEST SCH ×2 (00:26→06:57)
[2021-07-02] MEDS: IPRATROPIUM/ALBUTEROL 0.5-3(2.5)MG/3ML NEB HHN SCH (02:10)
[2021-07-02 05:33] LABS: MEAN CORPUSCULAR HEMOGLOBIN 29.8 pg (28.0-32.0); MEAN CORPUSCULAR VOLUME 90.6 fL (80.0-94.0); MEAN PLATELET VOLUME 9.6 fl (7.4-10.4); RED BLOOD CELL COUNT 2.21 mill/uL (4.7-6.1); RED CELL DISTRIBUTION WIDTH 14.9 % (11.6-14.6)
[2021-07-02 05:50] LABS: PHOSPHORUS 4.7 mg/dL (2.5-4.9)
[2021-07-02] MEDS: INSULIN LISPRO 100 UNITS/ML SUBCUT SCH ×2 (06:00)
[2021-07-02 06:44] LABS: HEMOGLOBIN. 6.6 g/dL (14.0-18.0)
[2021-07-02 06:45] LABS: PLATELET 28 x1000/uL (130-400)
[2021-07-02] MEDS: LEVOTHYROXINE SODIUM 50MCG TABLET PO SCH (06:56)
[2021-07-02] MEDS: AMLODIPINE 10MG TABLET PO SCH (07:56)
[2021-07-02] MEDS: CARVEDILOL 3.125 MG TABLET PO SCH (07:56)
[2021-07-02 18:01] LABS: NUCLEATED RED BLOOD CELLS 5 /100 WBC; PLATELET ESTIMATE MARKEDLY DECREASED
== END 2021-07-02 13:00 | DRG 870 ==
LOC: ER 19:46 → 7WST 06-15 00:14 → EDBEDREQTM 06-15 00:18 → EDBEDREQ 06-15 00:18 → EDBEDREQDT 06-15 00:20 → ENRESERV 06-15 02:55 → 7WST 06-15 16:24 → MICUSO 06-18 12:40 → MICUNO 06-30 01:08
PROVIDERS: ADMIT Internal Medicine; ATTEND Internal Medicine
PROC: XW033E5 Introduction of Remdesivir Anti-infective into Peripheral Vein, Percutaneous Approach, New Technology Group 5 (ICD-10-PCS; 2021-06-16)
PROC: 5A1955Z Respiratory Ventilation, Greater than 96 Consecutive Hours (ICD-10-PCS; principal; 2021-06-18)
PROC: 5A09357 Assistance with Respiratory Ventilation, Less than 24 Consecutive Hours, Continuous Positive Airway Pressure (ICD-10-PCS; 2021-06-18)
PROC: 0BH17EZ Insertion of Endotracheal Airway into Trachea, Via Natural or Artificial Opening (ICD-10-PCS; 2021-06-18)
PROC: 02HV33Z Insertion of Infusion Device into Superior Vena Cava, Percutaneous Approach (ICD-10-PCS; 2021-06-19)
PROC: B548ZZA Ultrasonography of Superior Vena Cava, Guidance (ICD-10-PCS; 2021-06-19)
PROC: 30233R1 Transfusion of Nonautologous Platelets into Peripheral Vein, Percutaneous Approach (ICD-10-PCS; 2021-06-21)
PROC: 30233N1 Transfusion of Nonautologous Red Blood Cells into Peripheral Vein, Percutaneous Approach (ICD-10-PCS; 2021-06-28)
DX: A41.89 Other specified sepsis (principal); U07.1 COVID-19; J12.82 Pneumonia due to coronavirus disease 2019; R65.21 Severe sepsis with septic shock; J96.01 Acute respiratory failure with hypoxia; E87.1 Hypo-osmolality and hyponatremia; N17.9 Acute kidney failure, unspecified; E87.0 Hyperosmolality and hypernatremia; E87.3 Alkalosis; G93.40 Encephalopathy, unspecified; D68.9 Coagulation defect, unspecified; E03.9 Hypothyroidism, unspecified; E11.65 Type 2 diabetes mellitus with hyperglycemia; E78.5 Hyperlipidemia, unspecified; E86.0 Dehydration; E86.1 Hypovolemia; I10 Essential (primary) hypertension; I25.10 Atherosclerotic heart disease of native coronary artery without angina pectoris; T38.0X5A Adverse effect of glucocorticoids and synthetic analogues, initial encounter; Z66 Do not resuscitate; D69.6 Thrombocytopenia, unspecified; E87.5 Hyperkalemia; D64.9 Anemia, unspecified; Z82.49 Family history of ischemic heart disease and other diseases of the circulatory system; Z95.1 Presence of aortocoronary bypass graft; Z79.82 Long term (current) use of aspirin; Z79.899 Other long term (current) drug therapy; Z86.73 Personal history of transient ischemic attack (TIA), and cerebral infarction without residual deficits; Y92.89 Other specified places as the place of occurrence of the external cause; Z79.01 Long term (current) use of anticoagulants; Z79.51 Long term (current) use of inhaled steroids; Z79.84 Long term (current) use of oral hypoglycemic drugs; Z83.3 Family history of diabetes mellitus; I70.201 Unspecified atherosclerosis of native arteries of extremities, right leg; I77.1 Stricture of artery
CPT/HCPCS: 31500; 36415; 36430; 36600; 71045; 76770; 76937; 80048; 80053; 80202; 81003; 82140; 82375; 82728; 82805; 82962; 83605; 83735; 83880; 83935; 84100; 84132; 84145; 84478; 84484; 85014; 85018; 85025; 85049; 85379; 85384; 86140; 86850; 86900; 86920; 87070; 87426; 93005; 93923; 94002; 94003; 94640; 94660; 99291; A6261; C1725; J0456; J0610; J0696; J1100; J1650; J1815; J1940; J2060; J2185; J2250; J2270; J2543; J2704; J2765; J3010; J3370; J3490; J7030; J7040; J7050; J7060; J7070; P9016; P9034; U0003; U0005